=== PATIENT | male | born 1985 | race Caucasian/White ===

== ENCOUNTER 2020-05-13 06:32 | Emergency (ER) | payer BC ==
[~2020-05-13] VITALS: Ht 175.3 cm; Wt 86.4 kg
[~2020-05-13 06:32] MED LIST: NO HOME MEDICATIONS
[2020-05-13 06:36] VITALS: BP 125/74; TEMP 98.3
[2020-05-13] MEDS ORDERED: ILOTYCIN5 MG/GM TOP (07:46)
[2020-05-13 07:56] VITALS: PULSE 82
== END 2020-05-13 07:54 | disposition home or self-care (01) ==
LOC: COL.ER 06:32
DX: H53.9 Unspecified visual disturbance (principal); Z88.0 Allergy status to penicillin